=== PATIENT | female | born 1985 | race Caucasian/White ===

== ENCOUNTER 2017-02-23 08:57 | Day surgery (SDC) | payer OTHER ==
[2017-02-23] MEDS ORDERED: LR 1,000 ML IV ONE (09:27)
[2017-02-23] MEDS ORDERED: LIDOCAINE 1% 2 ML INJ ID PRN (09:27)
[2017-02-23] MEDS ORDERED: CLINDAMYCIN 900 MG/DEXTROSE 50 ML IV ONE (09:55)
[2017-02-23] MEDS ORDERED: PHENAZOPYRIDINE HCL 100 MG TAB PO ONE (09:55)
[2017-02-23] MEDS ORDERED: SCOPOLAMINE HYDROBROMIDE 1 MG/3 DAYS PATCH TD ONE (10:02)
[2017-02-23] MEDS ORDERED: MIDAZOLAM 2 MG/2 ML VIAL ONE (10:03)
--- NOTE | 2017-02-23 10:05 | PDGENHP ---
History and Physical History and Physical: Assessment and Plan: 1. Endometriosis determined by laparoscopy Nataliia appears to have persistent endometriosis. We reviewed all conservative and surgical options. She wishes to proceed to robotic excision of endometriosis. The risks, benefits, and alternatives were presented and informed consent was obtained. 2. Dysmenorrhea 3. Pelvic pain in female Subjective: Patient ID: Nataliia Aceves is a 31 y.o. female who presents to [facility] for endometriosis. HPI Johns a 31-year-old 0 woman who lives in [place]. Earlier this year she had irregular bleeding as well as significant pain which she felt was in the cervical and uterine area. Her regular video game programmer changed her control pill to a lower estrogen dose. This caused her to feel depressed and suicidal. The pain did not resolve. In November she underwent a laparoscopy. I have a copy of her operative note. Endometriosis implants were seen in the left ovarian fossa between the iliac vessels. There also was endometriosis with scarring on the left pelvic brim. These were fulgurated. After surgery she unfortunately has had no symptomatic relief. The pain waxes and wanes but at times can be severe and debilitating. The pain radiates to her low back and down her legs. She does have some dyspareunia and dyschezia. A preoperative ultrasound was suggestive of adenomyosis. Unfortunately no intraoperative photos were taken. Martinaesymptoms are concerning for persistent endometriosis. We reviewed all conservative and surgical options. At the end of our discussion she wishes to undergo a repeat laparoscopic procedure with excision of all lesions of endometriosis. She is scheduled for February 23. PastMedicalHistory Past Medical History: Diagnosis Date Allergy to pollen Complication of anesthesia Nausea Depression Gastrointestinal disorder GERD, Ramos's, Hiatal Hernia, IBS STD (sexually transmitted disease) HPV Trauma Varicella PastSurgicalHistory Past Surgical History: Procedure Laterality Date CHOLECYSTECTOMY 2013 Lap COLPOSCOPY KNEE SURGERY Bilateral X4 PELVIC LAPAROSCOPY 11/2016 CURRENT MEDICATIONS: Current Outpatient Prescriptions Medication Sig amitriptyline (ELAVIL) 50 mg tablet lamoTRIgine (LAMICTAL) 200 mg tablet levonorgestrel-eth estradiol (JOLESSA) 0.15 mg-30 mcg per tablet omeprazole (PRILOSEC) 40 mg capsule No current facility-administered medications for this visit. ALLERGIES: Doxycycline and Penicillins I have reviewed, verified and agree with the past medical, surgical, , family, social and ROS history as documented by the RN today. Review of Systems Objective: Vital Signs: Visit Vitals BP 132/86 Pulse 106 Temp 37.2 C (98.9 F) (Temporal Artery) Resp 16 Ht 1.753 m (5' 9") Wt (!) 115.2 kg (254 lb) SpO2 99% BMI 37.51 kg/m2 Physical Exam Gen: This is an alert, well developed woman in no distress. Neuro: She moves all extremities. Psych: She is appropriate, oriented, with normal affect. Neck: No thyroid enlargement, adenopathy, or tenderness. Lungs: Clear to ascultation, no wheezes or rales. Heart: Regular rate and rhythm without obvious murmurs. Abdomen: Soft, non-tender, without guarding, rebound, or masses. Extremities: No edema or cyanosis. Pelvic: Normal external genitalia. Non-gaping introitus, vagina without discharge, adequately estrogenized, no significant prolapse. Cervix without lesions or discharge. Uterus normal sized. The cervix and posterior cul-de-sac are exquisitely tender. The uterus has minimal mobility. Both adnexa are tender without enlargement. DATA: N/A TIME/COMMUNICATION: I personally spent a total of 60 minutes. Of that 40 minutes was counseling/ coordination of patient's care. See my note above for details. Abdias Cantor MD Board Certified Female Pelvic Medicine and Reconstructive Surgery Director of Minimally Invasive Gynecologic Surgery, [facility] in Minimally Invasive Gynecologic Surgery Designee
[2017-02-23] MEDS ORDERED: PHENAZOPYRIDINE HCL 200 MG TAB PO ONE (10:15)
[2017-02-23] MEDS ORDERED: fentaNYL 100 MCG/2 ML INJ ONE ×5 (10:19→13:36)
[2017-02-23] MEDS ORDERED: PROPOFOL/EMULSION 500 MG/50 ML BOTTLE IV ONE (10:20)
[2017-02-23] MEDS ORDERED: BUPIVACAINE/EPI 0.5% 30 ML SDV ONE (10:24)
[2017-02-23] MEDS ORDERED: DIAZEPAM 10 MG/2 ML SYR ONE (10:41)
[2017-02-23] MEDS ORDERED: ROCURONIUM 100 MG/10 ML VIAL ONE (10:47)
[2017-02-23] MEDS ORDERED: ONDANSETRON 4 MG/2 ML VIAL ONE ×3 (10:47→14:38)
[2017-02-23] MEDS ORDERED: SUGAMMADEX SODIUM 200 MG/2 ML VIAL IVP ONE (10:47)
[2017-02-23] MEDS ORDERED: RANITIDINE 50 MG/2 ML VIAL ONE (10:47)
[2017-02-23] MEDS ORDERED: LIDOCAINE 2% 5 ML SDV ONE (10:47)
[2017-02-23] MEDS ORDERED: KETOROLAC 30 MG/1 ML SDV ONE (10:47)
[2017-02-23] MEDS ORDERED: PHENYLEPHRINE HCL 100 MCG/ML SYR ONE (10:47)
--- NOTE | 2017-02-23 10:52 | PDANEPAE ---
ANE Past Medical History - Cardiovascular History Hx Hypertension: No Hx Arrhythmias: No Hx Chest Pain: No Hx Coronary Artery / Peripheral Vascular Disease: No Hx CHF / Valvular Disease: No Hx Palpitations: No - Pulmonary History Hx COPD: No Hx Asthma/Reactive Airway Disease: No Hx Recent Upper Respiratory Infection: No Hx Oxygen in Use at Home: No Hx Sleep Apnea: No Sleep Apnea Screening Result - Last Documented: Negative - Neurologic History Hx Cerebrovascular Accident: No Hx Seizures: No Hx Dementia: No Neurologic History Comment: migraine H/A's - Endocrine History Hx Diabetes: No - Renal History Hx Renal Disorders: No - Liver History Hx Hepatic Disorders: No - Neurological & Psychiatric Hx Hx Neurological and Psychiatric Disorders: Yes Neurological / Psychiatric History Comment: anxiety and depression. - Cancer History Hx Cancer: No - Congenital Disorder History Hx Congenital Disorders: No - GI History Hx Gastrointestinal Disorders: Yes Gastrointestinal History Comment: Celiac disease, IBS, GERD, Ramos's Esophagus ,hiatal hernia. - Other Health History Other Health History: GLUTEN- INTOLERANT. endometriosis. recent antibx for uterine inflammation - Surgical History Prior Surgeries: diagnostic laparoscopy 12-13. knee scope 2-. knee scopes x3 - bilat. lap lewis 2013. tonsillectomy -child ANE Review of Systems Review of Systems: - Exercise capacity METS (RN): 4 METS ANE Patient History - Allergies Allergies/Adverse Reactions: cefaclor [From Ceclor] Allergy (Verified 01/26/17 12:11) Hives doxycycline Allergy (Verified 01/26/17 12:11) Hives Penicillins Allergy (Verified 01/26/17 12:11) Hives - Home Medications Home Medications: Amitriptyline HCl 01/26/17 [Last Taken Unknown] Jolessa 0.15 mg-0.03 mg Tablet 01/26/17 [Last Taken Unknown] Lamictal 01/26/17 [Last Taken Unknown] PRILOSEC 01/26/17 [Last Taken Unknown] - NPO status NPO Since - Liquids (Date): 02/22/17 NPO Since - Liquids (Time): 22:00 NPO Since - Solids (Date): 02/22/17 NPO Since - Solids (Time): 20:30 - Smoking Hx Smoking Status: Never smoked - Family Anes Hx Family Hx Anesthesia Complications: none ANE Labs/Vital Signs - Vital Signs Blood Pressure: 139/92 Heart Rate: 105 Respiratory Rate: 16 O2 Sat (%): 94 Height: 177.8 cm Weight: 108.862 kg ANE Physical Exam - Airway Neck exam: FROM Mallampati Score: Class 1 Mouth exam: normal dental/mouth exam - Pulmonary Pulmonary: no respiratory distress, no rales or rhonchi, clear to auscultation - Cardiovascular Cardiovascular: regular rate and rhythym, no murmur, rub, or gallop, pulses symmetric bilaterally - ASA Status ASA Status: III ANE Anesthesia Plan Anesthesia Plan: general endotracheal anesthesia Total IV Anesthesia: Yes
[2017-02-23] MEDS ORDERED: NALOXONE HCL 0.4 MG/ML INJ IVP PRN ×2 (11:23→13:57)
[2017-02-23] MEDS ORDERED: ALBUTEROL 3 ML DEYVIAL IH PRN (11:28)
[2017-02-23] MEDS ORDERED: DEXAMETHASONE 4 MG/ML VIAL IVP PRN (11:28)
[2017-02-23] MEDS ORDERED: LR 500 ML IV PRN (11:28)
[2017-02-23] MEDS ORDERED: HYDROmorphONE/DILAUDID 1 MG/ML INJ IVP PRN (11:28)
[2017-02-23] MEDS ORDERED: PROPOFOL 200 MG/20 ML VIAL ONE (11:33)
--- NOTE | 2017-02-23 12:23 | POSTOPPROG ---
Post Op Note Date of Operation: 02/23/17 Surgeon: Abdias Cantor Instructor [employer]: Shea Pena Anesthesiologist: Sirisha Anesthesia: GET(General Endotracheal) Pre-op Diagnosis: Endometriosisi Post-op Diagnosis: same Procedure: robotic excision of endo Findings: ureters function at end of case Inf/Abcess present in the surg proc area at time of surgery?: No EBL: Minimal Complications: None
[2017-02-23] MEDS: ONDANSETRON 4 MG/2 ML VIAL IVP PRN ×2 (12:27→14:41)
[2017-02-23] MEDS: fentaNYL 100 MCG/2 ML INJ IVP PRN ×3 (12:27→13:41)
[2017-02-23 12:41] VITALS: PULSE 93; TEMP 97.5
--- NOTE | 2017-02-23 13:23 | POSTANESTH ---
Post Anesthetic Evaluation Cardiovascular Status: Normal, Stable Respiratory Status: Normal, Stable Level of Consciousness/Mental Status: Can Participate in Eval, Mildly Sleepy, Arousable Pain Control: Adequate, Prn Tx Ordered Nausea/Vomiting Control: Adequate, Prn Tx Ordered Complications Possibly Related to Anesthesia: None Noted
[2017-02-23] MEDS ORDERED: OXYCODONE/APAP 5/325 TAB PO PRN (13:57)
[2017-02-23] MEDS ORDERED: ACETAMINOPHEN 500 MG TAB PO PRN (13:57)
[2017-02-23] MEDS ORDERED: HYDROCODONE/APAP 5/325 TAB PO PRN (13:57)
[2017-02-23 15:26] VITALS: BP 136/95
[2017-02-23 16:03] VITALS: RESP 14; O2SAT 96
--- NOTE | 2017-02-24 03:42 | GOP ---
[f rep st] OPERATIVE REPORT DATE OF OPERATION: 02/23/2017 SURGEON: Abdias Cantor MD AUTOCAD DRAFTSMAN: Shea Pena CFA. ANESTHESIA: General. ANESTHESIOLOGIST: Nu Grimm MD. PREOPERATIVE DIAGNOSIS: 1. Endometriosis. 2. Pelvic pain. 3. Dysmenorrhea. 4. Urinary frequency and urgency. POSTOPERATIVE DIAGNOSIS: 1. Endometriosis. 2. Pelvic pain. 3. Dysmenorrhea. 4. Urinary frequency and urgency. PROCEDURE PERFORMED: 1. Robotic excision of endometriosis. 2. Bilateral ureterolysis. 3. Excision of rectal lesion. 4. Cystoscopy. FINDINGS: SPECIMENS: Pelvic peritoneum with endometriosis. ESTIMATED BLOOD LOSS: Scant. DESCRIPTION OF PROCEDURE: The patient was taken to the operating room where she was identified. Gen eral anesthesia was administered and found to be adequate. She was placed in the lithotomy position and prepared and draped in normal sterile fashion. A Hulka tenaculum was placed in the uterus for ma nipulation. A Stoddard catheter was then placed. A 1 cm infraumbilical incision was created with the scalpel. A Veress needle with the CO2 gas flowin g was advanced into the peritoneal cavity. The abdomen was then insufflated with carbon dioxide gas. The 12 mm trocar followed by the laparoscope were then inserted. The upper abdomen was unremarkabl e. There was no evidence of endometriosis on either diaphragm, stomach, or liver. Findings in the u pper abdomen were unremarkable with no evidence of endometriosis on either diaphragm, liver, or stoma ch. The there were small bowel adherence to the right lower quadrant abdominal sidewall and psoas mu scle peritoneum. There were multiple areas of endometriosis in the anterior and posterior cul-de-sac , as well as distal ovarian fossa. There was a peritoneal window underneath the cervix. Two lateral ports were placed, 1 on the right, 1 on the left, under direct visualization. She then w as placed in Trendelenburg position and the da Roverto robot docked on the left side. The instruments were then brought into the abdominal cavity under direct visualization. The anterior cul-de-sac peritoneum was excised to remove all endometriosis. A similar procedure was performed in the posterior cul-de-sac underneath the cervix. Secondary to endometriosis overlying grace th ureters, a bilateral ureterolysis was required. The peritoneum at the pelvic brims were incised. The ureters were gently dissected free. The ureters were lateralized off the overlying peritoneum a nd endometriosis all the way down to the bladder. Once this was accomplished the ovarian fossa perit oneum from the pelvic brim all the way down to the uterosacral ligaments were completely excised. Du ring the removal of the posterior cul-de-sac peritoneum, there was a lesion on the distal rectum whic h was excised and left attached to the posterior cul-de-sac peritoneum. This extended approximately 30% to 50% to the muscularis layer. The pelvis was then copiously irrigated with sterile saline and hemostasis was present. Two sheets of Interceed were placed in the ovarian fossa to try to minimize postoperative adhesion formation of the affected tissue of the pelvic sidewalls. The robot was then undocked. The fascia was closed with 0 Vicryl, skin with 4-0 Monocryl and surgical adhesive. Cystoscopy was then performed. Both ureters had vigorous jets of urine. There was no evidence of bl adder or urethral injury seen. No obvious pathology was seen which could account for the patient's u rinary frequency and urgency, other than her bladder peritoneum and endometriosis. Anesthesia was re versed. The patient taken the PACU awake, in stable condition. COMPLICATIONS: None. DISPOSITION: The patient stable to PACU. /[id number]/MODL
== END 2017-02-23 16:05 | disposition home or self-care (01) ==
LOC: FSGY 08:57
PROVIDERS: ATTEND Obstetrics & Gynecology
DX: N80.3 Endometriosis of pelvic peritoneum (principal); N94.5 Secondary dysmenorrhea; R10.2 Pelvic and perineal pain
CPT/HCPCS: 58662; C1765; S2900; J1885; J2250; J2370; J2405; J2704; J2780; J3010

== ENCOUNTER 2017-07-13 05:30 | Observation (INO) | payer OTHER ==
--- NOTE | 2017-07-08 21:11 | PDGENHP ---
History and Physical History and Physical: Assessment and Plan: 1. Endometriosis determined by laparoscopy Nataliia appears to have persistent endometriosis. We reviewed all conservative and surgical options. She wishes to proceed to robotic excision of endometriosis. The risks, benefits, and alternatives were presented and informed consent was obtained. 2. Dysmenorrhea 3. Pelvic pain in female Subjective: Patient ID: Nataliia Aceves is a 31 y.o. female who [facility] for endometriosis. HPI Johns a 31-year-old 0 woman who lives in [place]. Earlier this year she had irregular bleeding as well as significant pain which she felt was in the cervical and uterine area. Her regular plastics fabricator or welder changed her control pill to a lower estrogen dose. This caused her to feel depressed and suicidal. The pain did not resolve. In November she underwent a laparoscopy. I have a copy of her operative note. Endometriosis implants were seen in the left ovarian fossa between the iliac vessels. There also was endometriosis with scarring on the left pelvic brim. These were fulgurated. After surgery she unfortunately has had no symptomatic relief. The pain waxes and wanes but at times can be severe and debilitating. The pain radiates to her low back and down her legs. She does have some dyspareunia and dyschezia. A preoperative ultrasound was suggestive of adenomyosis. Unfortunately no intraoperative photos were taken. Martinaesymptoms are concerning for persistent endometriosis. We reviewed all conservative and surgical options. At the end of our discussion she wishes to undergo a repeat laparoscopic procedure with excision of all lesions of endometriosis. She is scheduled for February 23. PastMedicalHistory Past Medical History: Diagnosis Date Allergy to pollen Complication of anesthesia Nausea Depression Gastrointestinal disorder GERD, Ramos's, Hiatal Hernia, IBS STD (sexually transmitted disease) HPV Trauma Varicella PastSurgicalHistory Past Surgical History: Procedure Laterality Date CHOLECYSTECTOMY 2013 Lap COLPOSCOPY KNEE SURGERY Bilateral X4 PELVIC LAPAROSCOPY 11/2016 CURRENT MEDICATIONS: Current Outpatient Prescriptions Medication Sig amitriptyline (ELAVIL) 50 mg tablet lamoTRIgine (LAMICTAL) 200 mg tablet levonorgestrel-eth estradiol (JOLESSA) 0.15 mg-30 mcg per tablet omeprazole (PRILOSEC) 40 mg capsule No current facility-administered medications for this visit. ALLERGIES: Doxycycline and Penicillins I have reviewed, verified and agree with the past medical, surgical, , family, social and ROS history as documented by the RN today. Review of Systems Objective: Vital Signs: Visit Vitals BP 132/86 Pulse 106 Temp 37.2 C (98.9 F) (Temporal Artery) Resp 16 Ht 1.753 m (5' 9") Wt (!) 115.2 kg (254 lb) SpO2 99% BMI 37.51 kg/m2 Physical Exam Gen: This is an alert, well developed woman in no distress. Neuro: She moves all extremities. Psych: She is appropriate, oriented, with normal affect. Neck: No thyroid enlargement, adenopathy, or tenderness. Lungs: Clear to ascultation, no wheezes or rales. Heart: Regular rate and rhythm without obvious murmurs. Abdomen: Soft, non-tender, without guarding, rebound, or masses. Extremities: No edema or cyanosis. Pelvic: Normal external genitalia. Non-gaping introitus, vagina without discharge, adequately estrogenized, no significant prolapse. Cervix without lesions or discharge. Uterus normal sized. The cervix and posterior cul-de-sac are exquisitely tender. The uterus has minimal mobility. Both adnexa are tender without enlargement. DATA: N/A TIME/COMMUNICATION: I personally spent a total of 60 minutes. Of that 40 minutes was counseling/ coordination of patient's care. See my note above for details. Abdias Cantor MD Board Certified Female Pelvic Medicine and Reconstructive Surgery Director of Minimally Invasive Gynecologic Surgery, [facility] in Minimally Invasive Gynecologic Surgery Designee
[2017-07-13] MEDS ORDERED: PHENAZOPYRIDINE HCL 200 MG TAB PO ONE (05:48)
[2017-07-13] MEDS ORDERED: CLINDAMYCIN 900 MG/DEXTROSE 50 ML IV ONE (05:48)
[2017-07-13] MEDS ORDERED: GABAPENTIN 400 MG CAP PO ONE (05:48)
[2017-07-13] MEDS ORDERED: ACETAMINOPHEN 500 MG TAB PO ONE (05:48)
[2017-07-13] MEDS ORDERED: LR 1,000 ML IV ONE (05:49)
[2017-07-13] MEDS ORDERED: LIDOCAINE 1% 2 ML INJ ID PRN (05:49)
--- NOTE | 2017-07-13 07:03 | PDHPUP ---
History & Physical Update H&P update statement: This history and physical update is based on an assessment of the patient which was completed after admission or registration (within 24 hours), but prior to the surgery/procedure. H&P update: H&P reviewed & patient examined, no change in patient's condition since H&P completed
--- NOTE | 2017-07-13 07:08 | PDANEPAE ---
ANE Past Medical History - Cardiovascular History Hx Hypertension: No Hx Arrhythmias: No Hx Chest Pain: No Hx Coronary Artery / Peripheral Vascular Disease: No Hx CHF / Valvular Disease: No Hx Palpitations: No - Pulmonary History Hx COPD: No Hx Asthma/Reactive Airway Disease: No Hx Recent Upper Respiratory Infection: No Hx Oxygen in Use at Home: No Hx Sleep Apnea: No Sleep Apnea Screening Result - Last Documented: Negative - Neurologic History Hx Cerebrovascular Accident: No Hx Seizures: No Hx Dementia: No Neurologic History Comment: migraine H/A's - Endocrine History Hx Diabetes: No - Renal History Hx Renal Disorders: No - Liver History Hx Hepatic Disorders: No - Neurological & Psychiatric Hx Hx Neurological and Psychiatric Disorders: Yes Neurological / Psychiatric History Comment: anxiety and depression. - Cancer History Hx Cancer: No - Congenital Disorder History Hx Congenital Disorders: No - GI History Hx Gastrointestinal Disorders: Yes Gastrointestinal History Comment: Celiac disease, IBS, GERD, Ramos's Esophagus ,hiatal hernia. - Other Health History Other Health History: GLUTEN- INTOLERANT. endometriosis. - Chronic Pain History Chronic Pain: Yes (lower back) - Surgical History Prior Surgeries: diagnostic laparoscopy 12-13. knee scope 2-. knee scopes x3 - bilat. lap lewis 2013. tonsillectomy -child ANE Review of Systems Review of Systems: - Exercise capacity METS (RN): 4 METS ANE Patient History - Allergies Allergies/Adverse Reactions: cefaclor [From Ceclor] Allergy (Intermediate, Verified 06/23/17 11:45) Hives doxycycline Allergy (Intermediate, Verified 06/23/17 11:45) Hives gluten Allergy (Intermediate, Verified 06/23/17 11:45) Other-Enter Comments Penicillins Allergy (Intermediate, Verified 06/23/17 11:45) Hives - Home Medications Home Medications: Amitriptyline HCl [Elavil 50 mg (*)] 50 mg PO DAILY 06/22/17 [Last Taken 20:00] Docusate Sodium [Colace 100 MG (*)] 100 mg PO BID PRN 06/22/17 [Last Taken 07/11] Norethindrone A-E Estradiol [Microgestin] 1 each PO DAILY 06/22/17 [Last Taken 07/12/17 20:00] Omeprazole [Prilosec 20 mg] 40 mg PO DAILY 06/22/17 [Last Taken 07/13/17 05:00] lamoTRIgine [LamICTAL 100 MG (*)] 200 mg PO DAILY 06/22/17 [Last Taken 07/12/17 20:00] - NPO status NPO Since - Liquids (Date): 07/13/17 NPO Since - Liquids (Time): 05:00 NPO Since - Solids (Date): 07/12/17 NPO Since - Solids (Time): 18:30 - Smoking Hx Smoking Status: Never smoked - Family Anes Hx Family Hx Anesthesia Complications: none ANE Labs/Vital Signs - Vital Signs Blood Pressure: 115/90 Heart Rate: 100 Respiratory Rate: 16 O2 Sat (%): 96 Height: 177.8 cm Weight: 120.202 kg ANE Physical Exam - Airway Neck exam: FROM Mallampati Score: Class 1 Mouth exam: normal dental/mouth exam - Pulmonary Pulmonary: no respiratory distress - Cardiovascular Cardiovascular: regular rate and rhythym - ASA Status ASA Status: II ANE Anesthesia Plan Total IV Anesthesia: Yes
[2017-07-13] MEDS ORDERED: MIDAZOLAM 2 MG/2 ML VIAL ONE (07:09)
[2017-07-13] MEDS ORDERED: PROPOFOL/EMULSION 500 MG/50 ML BOTTLE IV ONE ×5 (07:09→08:50)
[2017-07-13] MEDS ORDERED: DEXAMETHASONE 4 MG/ML VIAL ONE ×2 (07:10)
[2017-07-13] MEDS ORDERED: KETOROLAC 30 MG/1 ML SDV ONE (07:10)
[2017-07-13] MEDS ORDERED: RANITIDINE 50 MG/2 ML VIAL ONE (07:10)
[2017-07-13] MEDS ORDERED: ONDANSETRON 4 MG/2 ML VIAL ONE (07:10)
[2017-07-13] MEDS ORDERED: LIDOCAINE 2% 100 MG/5 ML SYR ONE (07:10)
[2017-07-13] MEDS ORDERED: ROCURONIUM 100 MG/10 ML VIAL ONE (07:10)
[2017-07-13] MEDS ORDERED: METOCLOPRAMIDE 10 MG/2 ML VIAL ONE (07:10)
[2017-07-13] MEDS ORDERED: BUPIVACAINE/EPI 0.5% 30 ML SDV ONE (07:34)
[2017-07-13] MEDS ORDERED: SUGAMMADEX SODIUM 200 MG/2 ML VIAL IVP ONE (09:04)
[2017-07-13] MEDS ORDERED: MEPERIDINE 25 MG/ML SYR IVP PRN (09:31)
[2017-07-13] MEDS ORDERED: ALBUTEROL 3 ML DEYVIAL IH PRN (09:31)
[2017-07-13] MEDS ORDERED: ONDANSETRON 4 MG/2 ML VIAL IVP PRN ×2 (09:31→15:53)
[2017-07-13] MEDS ORDERED: ACETAMINOPHEN 325 MG TAB PO PRN (09:31)
[2017-07-13] MEDS ORDERED: PROMETHAZINE HCL 25 MG/ML INJ IVP PRN (09:31)
[2017-07-13] MEDS ORDERED: NALOXONE HCL 0.4 MG/ML INJ IVP PRN (09:31)
--- NOTE | 2017-07-13 09:34 | POSTANESTH ---
Post Anesthetic Evaluation Cardiovascular Status: Similar to Pre-Op Cond Respiratory Status: Similar to Pre-op Cond. Level of Consciousness/Mental Status: Moderately Sleepy Pain Control: Adequate, Prn Tx Ordered Nausea/Vomiting Control: Adequate, Prn Tx Ordered Complications Possibly Related to Anesthesia: None Noted
--- NOTE | 2017-07-13 09:37 | POSTOPPROG ---
Post Op Note Date of Operation: 07/13/17 Surgeon: Abdias Cantor Electronic Court Recorder: Shea Pena Anesthesiologist: Karlo Anesthesia: GET(General Endotracheal) Pre-op Diagnosis: endometriosis Post-op Diagnosis: same Procedure: robotic hyst, bso, US lig colpopexy, bilat ureterolysis, cysto Findings: ureters function at end of case Inf/Abcess present in the surg proc area at time of surgery?: No EBL: Minimal Complications: None Drains: Constavac
[2017-07-13] MEDS ORDERED: fentaNYL 100 MCG/2 ML INJ ONE ×2 (09:58→10:38)
[2017-07-13] MEDS: fentaNYL 100 MCG/2 ML INJ IVP PRN ×4 (09:59→11:04)
[2017-07-13] MEDS ORDERED: LR 1,000 ML IV SCH (10:00)
--- NOTE | 2017-07-13 10:02 | GOP ---
[f rep st] OPERATIVE REPORT DATE OF OPERATION: 07/13/2017 SURGEON: Abdias Cantor MD CEMETERY KEEPER: Shea Pena CFA. ANESTHESIA: General. PREOPERATIVE DIAGNOSIS: 1. Endometriosis. 2. Dysmenorrhea. 3. Dyschezia. 4. Uterine prolapse. POSTOPERATIVE DIAGNOSIS: 1. Endometriosis. 2. Dysmenorrhea. 3. Dyschezia. 4. Uterine prolapse. PROCEDURE PERFORMED: 1. Robotic-assisted total laparoscopic hysterectomy, bilateral salpingo-oophorectomy. 2. Robotic excision of endometriosis in posterior cul-de-sac and bilateral ovarian fossa. 3. Bilateral uterosacral ligament colpopexy. 4. Bilateral ureterolysis. 5. Excision of rectal lesions. FINDINGS: SPECIMENS: Uterus, tubes, ovaries and peritoneum with endometriosis. ESTIMATED BLOOD LOSS: Scant. DESCRIPTION OF PROCEDURE: Nataliia was taken to the operating room where she was identified. General anesthesia was administered and found be adequate. She was placed in the lithotomy position and prep ared and draped in the normal sterile fashion. A Tetherballare uterine manipulator was placed into the endom etrial cavity and sutured to the cervix. A Stoddard catheter was then placed. A 1 cm infraumbilical incision was made through the prior surgical scar. The Veress needle with the CO2 gas flowing was advanced into the peritoneal cavity. The abdomen was then insufflated with carbo n dioxide gas. The 12 mm trocar followed by the laparoscope were then inserted. The upper abdomen w as unremarkable. There was no evidence of endometriosis on the diaphragms, liver, gallbladder or sto mach. Two lateral ports were placed in the right and one in left under direct visualization. She th en was placed in Trendelenburg position and the da Roverto robot docked on the left side. The instrume nts were then brought into the abdominal cavity under direct visualization. The patient was found to have endometriosis on the distal rectum, posterior cul-de-sac as well as edna ateral ovarian fossae overlying both ureters. Attention was first directed to the posterior cul-de-s ac and distal rectum. The lesions were gently dissected free. This extended approximately 50% throu gh the muscularis of the rectum. The entire posterior cul-de-sac peritoneum was then excised. Atten tion was then turned to the ovarian fossae. This required a bilateral ureterolysis given the locatio n of the endometriosis overlying both ureters. The peritoneum at the pelvic brims was incised. The ureters were gently dissected free and lateralized off the overlying peritoneum and endometriosis fro m the pelvic brim all the way down to the bladder. Once this was accomplished, the overlying periton eum and endometriosis was completely excised. The left round ligament was divided. The anterior leaf of the broad ligament was then incised to the bifurcation of the left common iliac vessels. A window was created in the medial leaf anterior to t he ureter to skeletonize the infundibulopelvic vessels. They were then cauterized and transected. T he anterior leaf of the broad ligament was then incised over the left uterine vessels and across the cervix. The bladder was gently dissected off the cervix and upper vagina. The left uterine vasculat ure was then cauterized and transected. The exact same procedure was performed on the patient's [facility] t side. A circumferential colpotomy incision was then made with the hot irma and all specimens wer e removed through the vagina. The vaginal cuff was then closed with a running suture of 0 V-Loc 180. A bilateral uterosacral ligament colpopexy was performed by attaching the lateral aspects of the va ginal cuff to the ipsilateral uterosacral ligaments near their insertion into the coccygeal-sacrospin ous ligament complexes. The pelvis was irrigated with sterile saline and hemostasis was present. Th e robot was then undocked. The fascia was closed with 0 Vicryl, skin with 4-0 Monocryl and surgical adhesive. Cystoscopy was then performed. Both ureters had vigorous jets of urine. There was no evidence of bl adder nor urethral injury seen. No obvious pathology was seen. Anesthesia was reversed and the nimisha ent taken the PACU awake, in stable condition. COMPLICATIONS: None. DISPOSITION: Patient stable to PACU. /[id number]/MODL
[2017-07-13] MEDS ORDERED: DIAZEPAM 10 MG/2 ML SYR ONE (11:13)
[2017-07-13] MEDS: DIAZEPAM 10 MG/2 ML SYR IVP PRN ×2 (11:19→12:59)
[2017-07-13] MEDS: KETOROLAC 30 MG/1 ML SDV IVP SCH ×2 (13:04→19:25)
[2017-07-13] MEDS: HYDROmorphONE/DILAUDID 1 MG/ML INJ IVP PRN ×2 (13:42→15:54)
[2017-07-13] MEDS: SIMETHICONE 80 MG TAB CHEW PO SCH ×2 (14:42→20:23)
[2017-07-13] MEDS ORDERED: PROMETHAZINE HCL 25 MG/ML INJ IV PRN (15:54)
[2017-07-13] MEDS ORDERED: SCOPOLAMINE HYDROBROMIDE 1 MG/3 DAYS PATCH TD ONE (16:00)
[2017-07-13] MEDS: GABAPENTIN 300 MG CAP PO SCH (20:23)
[2017-07-13] MEDS: DOCUSATE SODIUM 100 MG CAP PO PRN (20:23)
[2017-07-13] MEDS ORDERED: GABAPENTIN 400 MG CAP PO SCH (21:00)
[2017-07-14] MEDS: KETOROLAC 30 MG/1 ML SDV IVP SCH ×2 (01:37→07:18)
[2017-07-14] MEDS: SIMETHICONE 80 MG TAB CHEW PO SCH ×3 (01:39→13:03)
[2017-07-14] MEDS: DOCUSATE SODIUM 100 MG CAP PO PRN (08:43)
[2017-07-14] MEDS ORDERED: lamoTRIgine 100 MG TAB PO SCH (09:00)
[2017-07-14] MEDS ORDERED: NON-FORMULARY NEW DRUG (Omeprazole [Prilosec 20 Mg] 40 MG) PO SCH (09:00)
[2017-07-14] MEDS ORDERED: PANTOPRAZOLE SODIUM 40 MG TAB PO SCH (09:00)
[2017-07-14] MEDS ORDERED: AMITRIPTYLINE HCL 50 MG TAB PO SCH (09:00)
[2017-07-14 09:10] VITALS: RESP 16
[2017-07-14] MEDS: HYDROmorphONE/DILAUDID 2 MG TAB PO PRN ×2 (09:18→14:05)
[2017-07-14] MEDS: GABAPENTIN 300 MG CAP PO SCH (09:18)
[2017-07-14 13:08] VITALS: BP 135/90; PULSE 105; TEMP 97; O2SAT 94
[2017-07-14] MEDS ORDERED: TDAP ADULT 0.5 ML INJ (BOOSTRIX) IM ONE (13:33)
== END 2017-07-14 14:45 | disposition home or self-care (01) ==
LOC: F3E 05:30 → FOB 12:00
PROVIDERS: ADMIT Obstetrics & Gynecology; ATTEND Obstetrics & Gynecology
DX: N80.3 Endometriosis of pelvic peritoneum (principal); N80.5 Endometriosis of intestine; N94.6 Dysmenorrhea, unspecified; N81.4 Uterovaginal prolapse, unspecified; D25.9 Leiomyoma of uterus, unspecified; R10.2 Pelvic and perineal pain; K21.9 Gastro-esophageal reflux disease without esophagitis; K90.0 Celiac disease; Z23 Encounter for immunization
CPT/HCPCS: 57425; 58571; 58662; 90471; G0378; J1100; J1170; J1885; J1956; J2001; J2250; J2270; J2405; J2550; J2704; J2765; J2780; J3010; J3360